=== PATIENT | female | born 1980 | race Caucasian/White ===

== ENCOUNTER 2019-11-25 20:34 | Emergency (ER) | payer OTHER ==
[~2019-11-25] VITALS: Ht 157.5 cm; Wt 52.2 kg
[2019-11-25 20:41] VITALS: BP_SYST 136
--- NOTE | 2019-11-25 20:41 | NUR ---
Patient to ER bed HALLWAY 1 to gown for evaluation. Side rails up. Report given to PHILLIP.
--- NOTE | 2019-11-25 20:53 | NUR ---
Pt moved to bed 07
--- NOTE | 2019-11-25 20:54 | NUR ---
Pt brought by self, A&Ox4, pt presents to ER with LAC on R middle finger with a elevator constructor blade, pt afebrile, skin pink and warm, cap refill <3.
--- NOTE | 2019-11-25 21:00 | NUR ---
Dr Pena at bedside examining patient
[2019-11-25] MEDS ORDERED: BACITRACIN 1 GM OINT TP ONE ×2 (21:15→22:17)
[2019-11-25] MEDS ORDERED: LIDOCAINE MPF 2% 5mL VIAL INJ ONE (21:15)
[2019-11-25] MEDS ORDERED: LIDOCAINE 2%, 20 ML MDV ONE (21:33)
--- NOTE | 2019-11-25 22:16 | NUR ---
Patient given written and verbal discharge instructions and verbalizes understanding. ER MD discussed with patient the results and treatment provided. Patient in stable condition. ID arm band removed. Rx of Bacitracin given. Patient educated on pain management and to follow up with PMD. Pain Scale 2/10 tolerable for patient Opportunity for questions provided and answered. Medication side effect fact sheet provided.
[2019-11-25 22:17] VITALS: BP_SYST 132
== END 2019-11-25 22:17 | disposition home or self-care (01) ==
LOC: SED 20:34
DX: S61.212A Laceration without foreign body of right middle finger without damage to nail, initial encounter (principal); W26.8XXA Contact with other sharp object(s), not elsewhere classified, initial encounter; Y93.89 Activity, other specified; Y92.89 Other specified places as the place of occurrence of the external cause; Y99.8 Other external cause status
CPT/HCPCS: 12001; 99282; J2001